=== PATIENT | male | born 1960 | race Caucasian/White ===

== ENCOUNTER 2019-05-11 12:04 | Emergency (ER) | payer OTHER, SELFPAY ==
[2019-05-11 12:07] VITALS: BP 144/80; PULSE 67; RESP 16; TEMP 36.6; O2SAT 98
--- NOTE | 2019-05-11 12:12 | ED.GENADUL_ITS ---
Discharge Plan Disposition Patient Disposition: HOME Condition: Stable Discharge Details Chief Complaint: Orthopedic Clinical Impression: Fall, Closed head injury, Contusion of right shoulder Primary Care Provider: CHAVEZ JIMENEZ ED Provider: Kaylee Contreras Home Meds and New Rx's Prescriptions: Continued nitroglycerin 0.4 MG tablet, sublingual 0.4 mg Sublingual PRN PRN (Reason: Chest Pain) Qty: 25 RF: 0 metformin 500 mg Tablet 500 mg PO BID RF: 0 dextroamphetamine-amphetamine [Adderall XR] 20 mg Capsule,Extended Release 24hr 20 mg PO BID RF: 0 metoprolol succinate 25 mg Tablet Extended Release 24 Hr 25 mg PO BID RF: 0 aspirin 81 mg Tablet,Chewable 81 mg PO DAILY RF: 0 Discharge Instructions Instructions: Head Injury (ED), Contusion in Adults (ED) Additional Instructions: Alternate tylenol and motrin as needed and directed for pain. Apply ice to the affected area several times daily for 20 minutes at a time. Follow up with your primary care doctor in 1 week as needed. Return to the emergency department with any worsening or new concerning symptoms. Stand Alone Forms: Work Release Discharge Data Discharge Date/Time-TO BE ENTERED AT DEPARTURE: 05/11/19 13:32 Discharge Physician: Kaylee Contreras Medical Decision Making 1220 -- 59-year-old male presents with head injury and right shoulder injury after mechanical fall today in which he slipped and hit his right head and right shoulder on a piece of cement. Denies any headache, LOC or vomiting. He states he came for concern of his head and right shoulder. States he thinks he may have hit his right hip but denies any hip pain and declines evaluation of his lower extremities. He has pain in right shoulder with range of motion as well as tenderness palpation across entire shoulder. There are superficial abrasions to the right posterior shoulder. Remainder of exam within normal limits. No focal deficits. No evidence of head trauma. No C-spine tenderness. Discussed with patient that I do not see any indication for CT head imaging, but patient is concerned about possible injury and would prefer CT head at this time. Will also give a dose of Tylenol and obtain a right shoulder x-ray. 1415 --CT head and shoulder x-ray negative. Patient also given a dose of ibuprofen. Patient feels better after meds. Advised to follow up with the primary care doctor for re-evaluation as needed. Usual and customary return precautions given prior to discharge. Medical Records Medical records reviewed: Yes I reviewed the patient's medical records. Imaging Data Radiologic Study: Radiologist's impression: CT HEAD WO CLINICAL HISTORY: s/p hit R side of head on concrete. s/p hit R side of head on concrete TECHNIQUE: Imaging Protocol: Axial computed tomography images with coronal and sagittal reformatted images were created and reviewed COMPARISON: No exams were available for comparison FINDINGS: The ventricular system is normal in appearance. No evidence of acute intracranial hemorrhage, mass effect, or midline shift. The orbital structures are unremarkable. The temporal bone structures appear intact. Calvarium: Normal. Visualized Paranasal sinuses/Mastoids: Clear. IMPRESSION: Normal cranial CT. XR SHOULDER RT COMPLETE 2+V CLINICAL HISTORY: hit R shoulder on concrete, r/o acute fracture TECHNIQUE: COMPARISON: No exams were available for comparison FINDINGS: Five views were obtained. There are degenerative changes involving the acromioclavicular and glenohumeral joints. There is no evidence of a fracture or dislocation. HPI General Mode of arrival: ambulatory . Date/Time Provider Initiated Documentation: 05/11/19 12:09 . Limitations to Documentation: no limitations . Information obtained by: patient . History of Present Illness 59 year old M presents to the emergency department with the chief complaint of Mechanical fall with head injury and right shoulder injury, described as moderate, with intensity rated at 4. Patient reports no radiation. Patient started experiencing this hour(s) (1) and it has been constant. No relieving factors improve symptom(s), Movement worsens symptoms . Patient notes no other symptoms.. Patient did receive the following treatments prior to arrival, none Related Data Home Medications Medication Instructions Recorded Confirmed nitroglycerin 0.4 mg SUBLINGUAL PRN PRN #25 05/02/14 05/11/19 tab.subl aspirin 81 mg PO DAILY 05/11/19 05/11/19 dextroamphetamine-amphetamine 20 mg PO BID 05/11/19 05/11/19 [Adderall XR] metformin 500 mg PO BID 05/11/19 05/11/19 metoprolol succinate 25 mg PO BID 05/11/19 05/11/19 Previous Rx's Medication Instructions Recorded nitroglycerin 0.4 mg SUBLINGUAL PRN PRN #25 05/02/14 tab.subl Allergies Allergy/AdvReac Type Severity Reaction Status Date / Time No Known Allergies Allergy Unverified 05/11/19 12:12 General Stated Complaint: Orthopedic ESTUARDO: 4 Review of Systems All systems reviewed & are unremarkable except as noted in HPI and below Constitutional Constitutional: Reports as per HPI, Denies chills and Denies fever(s) Eyes Eyes: Denies blurry vision ENT Ears, Nose, Mouth, and Throat: Denies dizziness, Denies sore throat and Denies throat swelling Cardiovascular Cardiovascular: Denies chest pain and Denies dyspnea Respiratory Respiratory: Denies cough and Denies dyspnea Gastrointestinal Gastrointestinal: Denies abdominal pain, Denies diarrhea and Denies vomiting Genitourinary Genitourinary: Denies hematuria and Denies dysuria Musculoskeletal Musculoskeletal: Denies back pain and Denies numbness Comments: R shoulder pain Integumentary/Breasts Skin/Breast: Denies lesions and Denies rash Neurologic Neurologic: Denies dizziness, Denies focal weakness and Denies numbness Allergic/Immunologic Allergic/Immunologic: Denies throat swelling [facility] Medical History ADD (attention deficit disorder) (Acute) HTN (hypertension) (Chronic) Lymphoma (Acute) Obstructive sleep apnea (Chronic) Surgical History History of tonsillectomy and adenoidectomy (Acute) Social History Smoking/Tobacco Use Status: Current-Occasional Drug use: Never Do you feel safe at home: Yes Do you feel safe in your relationship?: Yes Exam Const General: cooperative and healthy appearing Orientation: alert and awake [facility] Head: normal to inspection, no palpable skull fracture, normocephalic and atraumatic Ears: hearing grossly normal bilaterally, external ears normal and TM's normal bilaterally General nose exam: external nose normal Face and sinus: normal facial exam Mouth: oral mucosae normal Teeth and gingiva: dentition normal Throat: posterior oropharynx normal Eyes General: appearance normal, both eyes and all related structures Eyelids: eyelids normal EOM: EOM intact bilaterally Neck Neck: normal visual inspection Lymphatic: no lymphadenopathy noted Chest Chest: normal inspection of the chest Resp Effort & Inspection: normal respiratory effort and able to speak in complete sentences Auscultation: clear to auscultation bilaterally Cardio Rate: regular rate Rhythm: regular rhythm GI Inspection: normal to inspection Palpation: soft, not firm, no guarding, no hepatosplenomegaly, no masses and nontender Auscultation: normal bowel sounds Back/Spine/Pelvis Cervical Spine: cervical ROM normal and No cervical spinal tenderness Thoracic/Lumbar Spine: No thoracic spinal tenderness and No lumbar spinal tenderness Skin General skin exam: no rashes or lesions noted Neuro General: alert and awake Cognition: normal cognition Speech: speech normal Gait: normal gait Motor: muscle tone normal throughout Sensory Exam: no sensory deficits noted Extrem Shoulder/upper arm images: 1. Tenderness to palpation of right anterior, lateral and posterior shoulder. 2. Superficial abrasions noted to right posterior shoulder/scapula without sig nificant tenderness or deformity. Other: Pain in right shoulder with range of motion. Limited abduction and flexion due to pain. Good internal rotation. No obvious deformities noted. No pain with range of motion at right elbow, wrist. Remainder of right upper extremity appears within normal limits. Bilateral radial pulses intact. Normal gait. No pain in hips or knees with range of motion. Psych Appearance: grossly normal Mental Status: mental status grossly normal Speech and Movement: speech and movement normal Affect: normal affect Thought Process: normal Course Vital Signs Vital signs: Vital Signs Temperature 97.9 F 05/11/19 12:07 Pulse 67 05/11/19 12:07 Respiratory Rate 16 05/11/19 12:07 Blood Pressure 144/80 H 05/11/19 12:07 Pulse Oximetry 98 05/11/19 12:07 Temperature 97.9 F 05/11/19 12:07 Temperature Source Skin 05/11/19 12:07 Pulse 67 05/11/19 12:07 Respiratory Rate 16 05/11/19 12:07 Blood Pressure 144/80 H 05/11/19 12:07 Blood Pressure Position Sitting 05/11/19 12:07 Pulse Oximetry 98 05/11/19 12:07 Oxygen Delivery Method Room Air 05/11/19 12:07 Oxygen Flow Rate 0 05/11/19 12:07 Pain Level 5 05/11/19 12:07
--- NOTE | 2019-05-11 12:22 | NUR.NOTE ---
To room 7 with c/o right shoulder pain s/p mechanical fall. landed on concrete. +head strike. Denies LOC. Denies dizziness, nausea, GARCIA. Abrasions noted to right shoulder, no active bleeding. Reports tingling to right 2nd digit. +radial pulse, cap refill <3 seconds. Ice to right shoulder.
[2019-05-11] MEDS: Acetaminophen 325 MG TAB 650 MG PO (12:38)
--- NOTE | 2019-05-11 13:01 | DI.RAD_ITS ---
EXAM: XR SHOULDER RT COMPLETE 2+V CLINICAL HISTORY: hit R shoulder on concrete, r/o acute fracture TECHNIQUE: COMPARISON: No exams were available for comparison FINDINGS: Five views were obtained. There are degenerative changes involving the acromioclavicular and glenohu meral joints. There is no evidence of a fracture or dislocation. IMPRESSION:
--- NOTE | 2019-05-11 13:03 | DI.CT_ITS ---
EXAM: CT HEAD WO CT HEAD WO CLINICAL HISTORY: s/p hit R side of head on concrete. s/p hit R side of head on concrete TECHNIQUE: Imaging Protocol: Axial computed tomography images with coronal and sagittal reformatted images were created and reviewed COMPARISON: No exams were available for comparison FINDINGS: The ventricular system is normal in appearance. No evidence of acute intracranial hemorrhage, mass effect, or midline shift. The orbital structures are unremarkable. The temporal bone structures appear intact. Calvarium: Normal. Visualized Paranasal sinuses/Mastoids: Clear. IMPRESSION: Normal cranial CT. DATA REPOSITORY: All CT scans at this facility are submitted to the National Radiology Data Registry (NRDR) Dose Index Registry (DIR) with the [employer] ([employer]). RADIATION OPTIMIZATION: All CT scans at this facility use at least one of these dose optimization te chniques: automated exposure control; mA and/or kV adjustment per patient size (includes targeted exa ms where dose is matched to clinical indication); or iterative reconstruction.
[2019-05-11] MEDS: Ibuprofen 600 MG TAB PO (13:12)
== END 2019-05-11 13:32 | disposition home or self-care (01) ==
PROVIDERS: Emergency Provider Physician Assistant; PCP Family Medicine
DX: S09.90XA Unspecified injury of head, initial encounter (principal); S40.011A Contusion of right shoulder, initial encounter; W00.0XXA Fall on same level due to ice and snow, initial encounter; I10 Essential (primary) hypertension
CPT/HCPCS: 99284; 70450; 73030; 99285